=== PATIENT | male | born 1995 | race Caucasian/White ===

== ENCOUNTER 2021-07-12 05:59 | Emergency (ER) | payer OTHER ==
[2021-07-12 06:25] LABS: BASOPHIL 0.8 % (0-2); EOSINOPHIL 1.4 % (0-5); HCT 41.9 % (42.0-52.0); HGB 14.7 g/dl (13.2-18.0); MCH 31.7 pg (25.0-31.0); MCHC 35.1 g/dL (32.0-36.0); MCV 90.3 fL (78.0-100.0); MONOCYTE 9.2 % (0-12); MPV 9.5 fL (6.0-9.5); NEUTROPHIL 57.3 % (41-80); NRBC 0; PLT 270 K/uL (150-400); RBC 4.64 M/uL (4.70-6.00); RDW 12.4 % (11.5-14.0); WBC 7.7 K/uL (4.0-10.5)
[2021-07-12 06:49] LABS: BILIRUBIN - TOTAL 0.3 mg/dL (0.2-1.0); BUN/CREAT RATIO (CALC) 15.8 RATIO; CREATININE 1.01 mg/dL (0.67-1.17); GLOBULIN (CALCULATION) 3.4 g/dL; POTASSIUM 3.7 mmol/L (3.5-5.1); TOTAL PROTEIN 7.4 g/dL (6.4-8.2)
[2021-07-12 07:27] LABS: INFLUENZA A NAA NEGATIVE (NEGATIVE)
[2021-07-12] MEDS ORDERED: PROTONIX 40MG T40 MG PO (07:52)
[2021-07-12 07:53] LABS: CORONAVIRUS 2019 SARS-COV-2 POSITIVE (NEGATIVE)
== END 2021-07-12 08:33 | disposition home or self-care (01) ==
LOC: FER 05:59
PROVIDERS: Internal Medicine
DX: U07.1 COVID-19 (principal); R07.89 Other chest pain; K75.81 Nonalcoholic steatohepatitis (NASH); I10 Essential (primary) hypertension; Z88.1 Allergy status to other antibiotic agents
CPT/HCPCS: 36415; 71275; 80053; 83690; 84145; 84484; 85025; 85379; 93005; Q9967; U0002